=== PATIENT | female | born 1980 | race Two or more races ===

== ENCOUNTER 2016-06-23 09:13 | Emergency (ER) | payer MEDICAID ==
[~2016-06-23] VITALS: Ht 160 cm; Wt 72.6 kg
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
[2016-06-23] MEDS ORDERED: AMOXICILLIN500 MG ORAL (09:51)
[2016-06-23] MEDS ORDERED: IBUPROFEN600 MG ORAL (09:51)
[2016-06-23 10:00] VITALS: BP 135/82
[2016-06-23 10:02] VITALS: BP 135/82
== END 2016-06-23 10:02 | disposition home or self-care (01) ==
LOC: EMR 09:43
DX: H66.91 Otitis media, unspecified, right ear (principal); K08.89 Other specified disorders of teeth and supporting structures
CPT/HCPCS: 99284

== ENCOUNTER 2016-09-07 14:03 | Emergency (ER) | payer MEDICAID ==
[~2016-09-07] VITALS: Ht 167.6 cm; Wt 72.6 kg
[~2016-09-07 14:03] MED LIST: AMOXICILLIN500 MG ORAL; IBUPROFEN600 MG ORAL
[2016-09-07 14:13] VITALS: BP 139/69
[2016-09-07] MEDS ORDERED: Norco 5mg/325mg tab ORAL ONE (14:30)
--- NOTE | 2016-09-07 16:03 | Diagnostic Imaging Report ---
Clinical Indication:PAIN Technique: 3 views of the right wrist Comparison: None Findings: No acute fractures. No dislocations. Joint spaces are preserved. No radiopaque foreign body Impression: Negative
--- NOTE | 2016-09-07 16:10 | Diagnostic Imaging Report ---
Indication: PAIN Technique: 3 views right hand Comparison: None Findings: No acute fractures. No dislocations. Joint spaces are preserved Impression: Negative
[2016-09-07] MEDS ORDERED: TRAMADOL HCL50 MG ORAL (16:13)
[2016-09-07] MEDS ORDERED: IBUPROFEN600 MG ORAL (16:13)
[2016-09-07 16:29] VITALS: BP 136/72
[2016-09-07 16:30] VITALS: BP 136/72
--- NOTE | 2016-09-07 22:48 | Emergency Room Report ---
History of Present Illness General Chief Complaint: Upper Extremity Injury Source: Patient Present Illness HPI The patient is a 36-year-old female presenting for injury to the right hand. She states that she tripped and fell onto the right hand last night. Pain described as an 8/10 dull ache and does not radiate. Worse with movement and touch. She denies previous injury to this area. She denies any other symptoms Allergies: Coded Allergies: No Known Allergies (Unverified , 06/23/16) Patient History Past Medical History: see triage record Pertinent Family History: none Last Menstrual Period: August 20, 2016 Now: No Reviewed Nursing Documentation: PMH: Agreed, PSxH: Agreed Nursing Documentation-PMH Past Medical History: No Stated History Review of Systems All Other Systems: negative except mentioned in HPI Physical Exam Vital Signs Date Time Temp Pulse Resp B/P Pulse Ox O2 Delivery O2 Flow Rate FiO2 09/07/16 14:08 98.1 71 20 139/69 94 Room Air Sp02 EP Interpretation: reviewed, normal General Appearance: no apparent distress, alert, GCS 15, non-toxic Head: normocephalic, atraumatic Eyes: bilateral eye PERRL, bilateral eye normal inspection Musculoskeletal: normal range of motion, swelling - R hand, tender - TTP over the R lateral wrist and 5th MC Neurologic: alert, oriented x3, responsive, motor strength/tone normal, sensory intact, speech normal Psychiatric: judgement/insight normal, memory normal, mood/affect normal, no suicidal/homicidal ideation Skin: normal color, no rash, warm/dry, well hydrated Procedures Splinting Splinting : Consent: Verbal Location: R arm Pre-Made Type: velcro Splint: volar Pre-Proc Neuro Vasc Exam: normal Post-Proc Neuro Vasc Exam: normal Patient Tolerated: Well Complications: None Medical Decision Making PA Attestation Dr. Casey is my supervising physician. Patient management was discussed with my supervising physician Diagnostic Impression: Primary Impression: Contusion Qualified Codes: S60.221A - Contusion of right hand, initial encounter ER Course The patient is a 36-year-old female presenting for right hand and wrist pain Ddx considered include but not limited to sprain/strain, fracture, contusion Physical exam: There is soft tissue swelling diffusely of the right hand. Tenderness to palpation noted over the distal fifth metacarpal and lateral wrist. Full active range of motion. No ecchymosis X-ray of the hand and wrist are both unremarkable A volar splint is placed Rice instructions are given and she will follow up with primary doctor. ER precautions given Other X-Ray Diagnostic Results Other X-Ray Diagnostic Results #1: X-Ray ordered: R hand # of Views/Limited Vs Complete: 3 View Indication: Pain EP Interpretation: Yes Interpretation: no dislocation, no soft tissue swelling, no fractures Impression: No acute disease Interpreting ER Provider: Dr. Carmela GONZALES Scribe Text I am acting as scribe for my supervising physician. My supervising physician's interpretation of the R hand xrays are there are no fractures, dislocations or soft tissue swelling. Other X-Ray Diagnostic Results #2: X-Ray ordered: R wrist # of Views/Limited Vs Complete: 3 View Indication: Pain EP Interpretation: Yes Interpretation: no dislocation, no soft tissue swelling Impression: No acute disease Interpreting ER Provider: Dr. Carmela Marinoibe Text I am acting as scribe for my supervising physician. My supervising physician's interpretation of the R wrist xrays are there are no fractures, dislocations or soft tissue swelling. Last Vital Signs Date Time Temp Pulse Resp B/P Pulse Ox O2 Delivery O2 Flow Rate FiO2 09/07/16 16:30 98.2 76 19 136/72 95 Room Air Status: improved Disposition: HOME, SELF-CARE Condition: Improved Scripts Tramadol Hcl* (ULTRAM*) 50 Mg Tablet 50 MG ORAL Q6H Y for For Pain, #10 TAB 0 Refills Prov: TERMARGOTANRADHA P.A. 09/07/16 Ibuprofen* (MOTRIN*) 600 Mg Tablet 600 MG ORAL Q8H Y for For Pain, #30 TAB 0 Refills Prov: TERZIAN,RADHA P.A. 09/07/16 Patient Instructions: Contusion Additional Instructions: I discussed my findings with the patient. All questions and concerns have been answered. Treatment and medication compliance have been addressed. I advised the patient that they need to follow up with PMD in 3-5 days. Return to ED if pain remains or worsens, numbness or tingling occurs, new rash is noticed, fever is noticed, or if needed for any reason. Patient verbalized understanding of discharge instructions. RADHA LOPES Sep 07, 2016 22:48
== END 2016-09-07 16:32 | disposition home or self-care (01) ==
LOC: EMR 14:30
DX: S60.221A Contusion of right hand, initial encounter (principal); W01.0XXA Fall on same level from slipping, tripping and stumbling without subsequent striking against object, initial encounter; Y92.89 Other specified places as the place of occurrence of the external cause
CPT/HCPCS: 29260; 99284

== ENCOUNTER 2016-09-14 11:50 | Emergency (ER) | payer MEDICAID ==
[~2016-09-14] VITALS: Ht 160 cm; Wt 74.8 kg
[~2016-09-14 11:50] MED LIST changes: +TRAMADOL HCL50 MG ORAL
[2016-09-14 12:01] VITALS: BP 129/73
[2016-09-14 12:59] VITALS: BP 129/73
--- NOTE | 2016-09-14 14:43 | Emergency Room Report ---
History of Present Illness General Chief Complaint: General Complaint Source: Patient Present Illness HPI Patient 36-year-old female presented for followup on a hand injury. The patient had recent fall for which she was placed in a posterior splint. Patient had negative x-ray imaging.The patient denied any severe pain. She reports having no numbness. She reported having continued pain to her right fourth and fifth metacarpal. Allergies: Coded Allergies: No Known Allergies (Unverified , 06/23/16) Patient History Past Medical History: see triage record Last Menstrual Period: 08/30/16 Reviewed Nursing Documentation: PMH: Agreed, PSxH: Agreed Nursing Documentation-PMH Past Medical History: No Stated History Review of Systems All Other Systems: negative except mentioned in HPI Physical Exam Vital Signs Date Time Temp Pulse Resp B/P Pulse Ox O2 Delivery O2 Flow Rate FiO2 09/14/16 11:53 97.5 69 14 129/73 99 Room Air General Appearance: well appearing, no apparent distress, alert, GCS 15 Head: normocephalic, atraumatic ENT: hearing grossly normal, normal voice Neck: full range of motion, supple Respiratory: no respiratory distress, speaking full sentences Musculoskeletal: normal inspection, back normal, digits/nails normal, no calf tenderness Neurologic: normal inspection, alert, oriented x3, responsive, methods study analyst III-XII nml as tested, motor strength/tone normal, normal gait Psychiatric: mood/affect normal Skin: normal inspection, normal color, no rash Medical Decision Making Diagnostic Impression: Primary Impression: Hand contusion Additional Impression: Contusion ER Course Patient presented for wound check. The patient appeared to have no evidence of the new tenderness or pain. Splint was removed. The patient was advised followup with orthopedics in next few days for reexamination. The patient is advised continuous her extremity and to limit the amount of use of her right hand. The patient is advised to follow up with primary care doctor in 1-2 days. Patient is advised to return if any worsening condition or if any changes in status that are concerning. Last Vital Signs Date Time Temp Pulse Resp B/P Pulse Ox O2 Delivery O2 Flow Rate FiO2 09/14/16 12:59 97.5 68 14 129/73 99 Room Air Status: improved Disposition: HOME, SELF-CARE Condition: Stable Patient Instructions: Augustin Mora Sep 14, 2016 14:43
== END 2016-09-14 13:10 | disposition home or self-care (01) ==
LOC: EMR 12:37
DX: S60.221D Contusion of right hand, subsequent encounter (principal); W19.XXXD Unspecified fall, subsequent encounter
CPT/HCPCS: 99282

== ENCOUNTER 2016-12-01 09:32 | Emergency (ER) | payer MEDICAID ==
[~2016-12-01] VITALS: Ht 162.6 cm; Wt 74.8 kg
[2016-12-01] MEDS ORDERED: NKM (09:37)
[2016-12-01] MEDS ORDERED: Solu-MEDROL 125mg Inj IM ONE (10:15)
[2016-12-01] MEDS ORDERED: BENADRYL25 MG ORAL (10:28)
[2016-12-01] MEDS ORDERED: PEPCID20 MG ORAL (10:28)
[2016-12-01] MEDS ORDERED: PREDNISONE20 MG ORAL (10:28)
--- NOTE | 2016-12-01 10:31 | Emergency Room Report ---
History of Present Illness General Chief Complaint: General Complaint Source: Patient Present Illness HPI Patient presents with complaints that she has been having a rash and itching for the past 2 weeks Patient has not taken any medications denies any new job denies any contact with new chemicals patient does work as a distributor cleaner at homes Denies any recent travel Denies any fevers Denies any dysuria frequency The rash is fairly general throughout the arms upper chest facial area Allergies: Coded Allergies: No Known Allergies (Unverified , 06/23/16) Patient History Past Medical History: see triage record Pertinent Family History: none Last Menstrual Period: 10/21/16 Reviewed Nursing Documentation: PMH: Agreed, PSxH: Agreed Nursing Documentation-PMH Past Medical History: No Stated History Review of Systems All Other Systems: negative except mentioned in HPI Physical Exam Vital Signs Date Time Temp Pulse Resp B/P (MAP) Pulse Ox O2 Delivery O2 Flow Rate FiO2 12/01/16 09:35 97.3 56 18 139/79 98 Room Air Sp02 EP Interpretation: reviewed, normal General Appearance: well appearing, no apparent distress Head: normocephalic, atraumatic Eyes: bilateral eye PERRL, bilateral eye EOMI ENT: hearing grossly normal, normal pharynx, TMs + canals normal, uvula midline Neck: full range of motion, supple, no meningismus, no bony tend Respiratory: lungs clear, normal breath sounds, no rhonchi, no respiratory distress, no retraction, no accessory muscle use Cardiovascular #1: normal peripheral pulses, regular rate, rhythm, no edema, no gallop, no JVD, no murmur Gastrointestinal: normal bowel sounds, non tender, soft, no mass, no organomegaly, non-distended, no guarding, no hernia, no pulsatile mass, no rebound Genitourinary: no CVA tenderness Musculoskeletal: normal inspection Neurologic: oriented x3, responsive, medical office worker III-XII nml as tested, motor strength/ tone normal, sensory intact Psychiatric: mood/affect normal Skin: other - Diffuse general nonspecific rash involving upper arms, mild erythema, does not appear to be petechiae or target cell in appearance there is no streaking of erythema, Lymphatic: normal inspection, no adenopathy Medical Decision Making Diagnostic Impression: Primary Impression: rash Additional Impression: Rash and nonspecific skin eruption ER Course Patient does not appear bacteremic does not appear septic there appears to be a reaction to some external source Patient was treated symptomatically at this time requires close outpatient followup Last Vital Signs Date Time Temp Pulse Resp B/P (MAP) Pulse Ox O2 Delivery O2 Flow Rate FiO2 12/01/16 09:35 97.3 56 18 139/79 98 Room Air Status: improved Disposition: HOME, SELF-CARE Condition: Improved Scripts Diphenhydramine Hcl* (BENADRYL*) 25 Mg Capsule 25 MG ORAL Q6H Y for Itching for 7 Days, CAP Prov: KIRK CANNON D.O. 12/01/16 Famotidine (PEPCID) 20 Mg Tablet 20 MG ORAL DAILY, #7 TAB 0 Refills Prov: KIRK CANNON D.O. 12/01/16 Prednisone* (PREDNISONE*) 20 Mg Tablet 20 MG ORAL BID, #8 TAB Prov: KIRK CANNON D.O. 12/01/16 Referrals: NOT CHOSEN IPA/MD,REFERRING (PCP) Patient Instructions: Rash, [id number] Additional Instructions: Patient is provided with the discharge instructions notified to follow up with primary doctor in the next 2-3 days otherwise return to the er with any worsening symptoms. Please note that this report is being documented using REMOTV technology. This can lead to erroneous entry secondary to incorrect interpretation by the dictating instrument. KIRK CANNON D.O. Dec 01, 2016 10:31
[2016-12-01 10:38] VITALS: BP 104/73
== END 2016-12-01 11:30 | disposition home or self-care (01) ==
LOC: EMR 09:51
DX: R21 Rash and other nonspecific skin eruption (principal)
CPT/HCPCS: 96372; 99284; J2930

== ENCOUNTER 2017-04-21 11:47 | Emergency (ER) | payer SELFPAY ==
[~2017-04-21] VITALS: Ht 162.6 cm; Wt 79.4 kg
[~2017-04-21 11:47] MED LIST changes: +BENADRYL25 MG ORAL; +NKM; +PEPCID20 MG ORAL; +PREDNISONE20 MG ORAL
[2017-04-21 12:19] VITALS: BP 122/61
[2017-04-21] MEDS ORDERED: Tylenol #3 tab (300mg/30mg) ORAL ONE (13:00)
[2017-04-21] MEDS ORDERED: Albuterol ud Inhalation HHN ONE (13:00)
--- NOTE | 2017-04-21 13:29 | Emergency Room Report ---
History of Present Illness General Chief Complaint: Abdominal Pain Source: Patient Present Illness HPI 36-year-old female presents with 3-4 days of dry cough, upper respiratory symptoms including rhinorrhea, sore throat, nasal congestion. Patient is a smoker however no history of asthma or COPD She is also complaining of multiple months of right-sided abdominal pain, worse with eating, has known history of biliary colic. Was told to have outpatient elective surgery removal of a bladder however didn't do it "because I was of the time." Has not followed up since. She states pain is "okay" right now, no associated nausea, vomiting, diarrhea or fevers or chills. She reiterates that the main reason she is here is for her cough. Allergies: Coded Allergies: No Known Allergies (Unverified , 06/23/16) Patient History Past Medical History: other - biliary colic Past Surgical History: none Pertinent Family History: none Social History: Reports: smoking Now: No Immunizations: UTD Reviewed Nursing Documentation: PMH: Agreed, PSxH: Agreed Nursing Documentation-PMH Past Medical History: No Stated History Review of Systems All Other Systems: negative except mentioned in HPI Physical Exam Vital Signs Date Time Temp Pulse Resp B/P (MAP) Pulse Ox O2 Delivery O2 Flow Rate FiO2 04/21/17 12:15 97.4 70 22 122/61 100 Room Air 97.3 04/21/17 13:16 21 Sp02 EP Interpretation: reviewed, normal General Appearance: normal inspection, well appearing, no apparent distress, alert, GCS 15, non-toxic, obese Head: normocephalic, atraumatic Eyes: bilateral eye PERRL, bilateral eye EOMI ENT: normal ENT inspection, hearing grossly normal, normal pharynx, no angioedema, normal voice, TMs + canals normal, uvula midline, moist mucus membranes Neck: normal inspection, full range of motion, supple, thyroid normal, no meningismus, no bony tend Respiratory: normal inspection, lungs clear, normal breath sounds, no rhonchi, no respiratory distress, no retraction, no accessory muscle use, no wheezing, speaking full sentences Cardiovascular #1: regular rate, rhythm, no edema, no JVD, normal capillary refill Gastrointestinal: normal inspection, normal bowel sounds, non tender, soft, no mass, no peritonitis, non-distended, no guarding, no hernia, no pulsatile mass Genitourinary: no CVA tenderness Musculoskeletal: normal inspection, back normal, normal range of motion, no calf tenderness, pelvis stable, Calvin's Sign negative Neurologic: normal inspection, alert, oriented x3, responsive, production helper III-XII nml as tested, motor strength/tone normal, cerebellar normal, normal gait, speech normal Psychiatric: normal inspection, judgement/insight normal, mood/affect normal, no suicidal/homicidal ideation, no delusions Skin: normal inspection, normal color, no rash Lymphatic: normal inspection, no adenopathy Medical Decision Making Diagnostic Impression: Primary Impression: Abdominal pain Qualified Codes: R10.11 - Right upper quadrant pain Additional Impressions: Biliary colic Acute bronchitis Qualified Codes: J20.9 - Acute bronchitis, unspecified ER Course Vital signs stable, afebrile Right-sided abdominal pain: chronic, likely related to biliary colic. Patient has multiple risk factors for biliary colic including age, female gender, multiple pregnancies, ethnicity, and obesity. She does not currently have any abdominal tenderness or fever or other concern for acute cholecystitis at this time. Regarding the cough, lungs are clear to auscultation, no rhonchi or wheezing Improved after albuterol Likely acute bronchitis No myalgias, headache or other concern for influenza Patient otherwise well-appearing Will give symptomatically treatment for cough Strong recommendation to follow-up with outside surgeon for elective cholecystectomy ER course: Patient has remained stable during ED stay. Disposition: Patient is to be discharged to home. Prescriptions given are ventolin, cough syrup Patient is instructed to follow up with their primary care doctor within 5 days. Patient is instructed to follow up with Gen Valerieron in 1 week Strict return precautions discussed with patient such as fever, chills, worsening/severe pain, nausea, vomiting, which may indicate severe illness. Patient verbalizes understanding and agrees with plan. Please note that this Emergency Department Report was dictated using Platialgeospatial extractor analysis technology software, occasionally this can lead to erroneous entry secondary to interpretation by the dictation equipment Last Vital Signs Date Time Temp Pulse Resp B/P (MAP) Pulse Ox O2 Delivery O2 Flow Rate FiO2 04/21/17 13:16 21 04/21/17 13:16 66 16 100 Room Air 04/21/17 13:02 97.4 04/21/17 12:19 122/61 Status: improved Disposition: HOME, SELF-CARE Referrals: NOT CHOSEN IPA/,REFERRING (PCP) SONY MAYES M.D. Apr 21, 2017 13:29
[2017-04-21] MEDS ORDERED: PROMETH-CODEIN 65 ML PO (13:31)
[2017-04-21] MEDS ORDERED: VENTOLIN HFA18 GM INH (13:31)
[2017-04-21 13:35] VITALS: BP 118/69
== END 2017-04-21 13:35 | disposition home or self-care (01) ==
LOC: EMR 12:47
DX: R10.9 Unspecified abdominal pain (principal); J20.9 Acute bronchitis, unspecified
CPT/HCPCS: 94640; 94664; 99283

== ENCOUNTER 2017-07-02 20:08 | Emergency (ER) | payer SELFPAY ==
[~2017-07-02] VITALS: Ht 160 cm; Wt 79.4 kg
[~2017-07-02 20:08] MED LIST changes: +PROMETH-CODEIN 65 ML PO; +VENTOLIN HFA18 GM INH
[2017-07-02] MEDS ORDERED: oxyCODONE HCL/Acetaminophen 5/325mg ORAL ONE (20:30)
--- NOTE | 2017-07-02 20:32 | Emergency Room Report ---
History of Present Illness General Chief Complaint: Lower Extremity Injury Source: Patient Present Illness HPI Last night the patient was going out dancing and twisted her right foot. She's had swelling and pain both in the ankle and also the lateral side of the foot. The pain is significant at this time radiates somewhat up into the leg. She denies any numbness. She's taken no medication for this. She denies prior injury of the ankle or the foot. She states she's on her menses now. She denies any fevers, chills, upper respiratory symptoms, cough, chest pain, calf pain. 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 Nursing Documentation: PMH: Agreed; PSxH: Agreed Nursing Documentation-PMH Past Medical History: No Stated History Review of Systems Constitutional: Denies: fever Respiratory: Reports: see HPI Cardiovascular: Reports: see HPI Gastrointestinal: Reports: see HPI Genitourinary: Reports: see HPI Musculoskeletal: Reports: see HPI Skin: Reports: see HPI Neurological: Reports: see HPI All Other Systems: negative except mentioned in HPI Physical Exam Vital Signs Date Time Temp Pulse Resp B/P (MAP) Pulse Ox O2 Delivery O2 Flow Rate FiO2 07/02/17 20:11 98.0 83 16 128/69 97 Room Air 98.1 Sp02 EP Interpretation: reviewed, normal General Appearance: well appearing, no apparent distress Head: normocephalic, atraumatic Eyes: bilateral eye normal inspection, bilateral eye PERRL ENT: hearing grossly normal, normal voice, moist mucus membranes Neck: full range of motion, supple Respiratory: no respiratory distress, speaking full sentences Gastrointestinal: normal inspection Musculoskeletal: no calf tenderness, decreased range of mation, swelling, other - ligaments stable, TTP lateral maleolus and 5th MT Neurologic: alert, motor strength/tone normal, DTRs symmetric, sensory intact, normal gait Psychiatric: mood/affect normal Skin: no rash Medical Decision Making Diagnostic Impression: Primary Impression: Right ankle sprain Qualified Codes: S93.401A - Sprain of unspecified ligament of right ankle, initial encounter ER Course Patient presents with right ankle and foot injury last night. Based on [place] ankle rules the patient needs to have an x-ray performed. Differential includes fracture, sprain, contusion amongst others. The patient will be treated with analgesia also. X-ray reveals no fracture. But there is soft tissue swelling. An Aircast is applied. Position is excellent and neurovascular is normal as checked by me. The patient is also given crutches. Pain is improved. The patient is stable for outpatient observation and treatment. Other X-Ray Diagnostic Results Other X-Ray Diagnostic Results : X-Ray ordered: r ankle # of Views/Limited Vs Complete: 3 View Indication: Pain Interpretation: no dislocation, no fractures, other - STS - possible old fx near cuboid/5th MT, rounded and not look acute Impression: Other Electronically Signed by: Electronically signed by Regan Newton MD Last Vital Signs Date Time Temp Pulse Resp B/P (MAP) Pulse Ox O2 Delivery O2 Flow Rate FiO2 07/02/17 21:44 97.9 70 18 132/70 98 Room Air 98.0 Status: improved Disposition: HOME, SELF-CARE Condition: Improved Scripts Tramadol Hcl* (ULTRAM*) 50 Mg Tablet 50 MG ORAL Q6H PRN for For Pain, #10 TAB 0 Refills Prov: Regan Newton M.D. 07/02/17 Ibuprofen* (MOTRIN*) 600 Mg Tablet 600 MG ORAL Q6H PRN for For Pain, #20 TAB Prov: Regan Newton M.D. 07/02/17 Regan Newton M.D. July 02, 2017 20:32
[2017-07-02] MEDS ORDERED: IBUPROFEN600 MG ORAL (21:36)
[2017-07-02] MEDS ORDERED: TRAMADOL HCL50 MG ORAL (21:36)
[2017-07-02 21:44] VITALS: BP 132/70
--- NOTE | 2017-07-03 08:58 | Diagnostic Imaging Report ---
Indication: Reason For Exam: TRAUMA Technique: XRAY Ankle Compl Min 3v R Comparison: None. Findings: The osseous structures are intact. There is no fracture or destruction. The visualized joints are normal. There is a plantar calcaneal enthesophyte. Impression: Enteric calcaneal enthesophyte. Otherwise negative.
== END 2017-07-02 21:44 | disposition home or self-care (01) ==
LOC: EMR 20:31
DX: S93.401A Sprain of unspecified ligament of right ankle, initial encounter (principal); F17.200 Nicotine dependence, unspecified, uncomplicated; X50.1XXA Overexertion from prolonged static or awkward postures, initial encounter; Y93.41 Activity, dancing; Y92.9 Unspecified place or not applicable
CPT/HCPCS: 99284

== ENCOUNTER 2018-02-13 21:37 | Emergency (ER) | payer MEDICAID ==
[~2018-02-13] VITALS: Ht 162.6 cm; Wt 79.4 kg
--- NOTE | 2018-02-13 22:20 | NUR ---
ED Nurse Note: RECIEVED PT FROM HOME WITH C/O MECHANICAL FALL WITH PAIN AT 10/10 TO LEFT SHOULDER AND ARM, MILD SWELLING NOTED, NO DEFORMITY, TP ABLE TO MOVE EXTREMITY AND ALL PULSES ARE PRESENT, PT DENIES ANY OTHER INJURY OR COMPLAINT, PT DAUGHTER AT BEDSIDE WITH HER, PT ASSISTED TO GURNEY AND ARM POSITIONED WITH PILLOW SUPPORT AND ICE PACK.
[2018-02-13] MEDS ORDERED: Norco 5mg/325mg tab PO ONE (23:00)
[2018-02-13 23:30] VITALS: BP 122/84
[2018-02-13] MEDS ORDERED: ACETAMINOPHEN-1 EAC1 ORAL (23:33)
[2018-02-13] MEDS ORDERED: IBUPROFEN600 MG ORAL (23:33)
--- NOTE | 2018-02-13 23:55 | NUR ---
ED Nurse Note: ALL X-RAYS ARE NEGATIVE, PT BEING D/C TO HOME, SLING APPLIED TO LEFT ARM, PT SHOWN HOW TO APPLY AND RETURN DEMONSTRATES WELL, PT STATES MEDS GIVEN EFFECTIVE WITH PAIN LEVEL AT 6/10, PT DAUGHTER PRESENT TO DRIVE, PT GIVEN F/U INFO, AFTER CARE INSTRUCTIONS AND BOTH PARTIES RE-VERBALIZES PROPER MEDICATION ADMINISTRATION AND S/S TO MONITOR FOR, PT ALSO GIVEN REFERRALS FOR CLINIC F/U, PT LEAVING AMBULATORY, ARMBAND REMOVED, NAD NOTED DURING D/C TO HOME.
[2018-02-14 00:04] VITALS: BP 122/84
--- NOTE | 2018-02-14 03:35 | Emergency Room Report ---
History of Present Illness General Chief Complaint: Upper Extremity Injury Source: Patient Present Illness HPI 37-year-old female presents ED for evaluation. Patient complaining of left shoulder pain states that she fell in the shower today. Denies hitting her head or LOC. Complaining of pain to the left shoulder. 10 out of 10, throbbing , nonradiating. Unable to raise her shoulder. Denies any other injuries. No other aggravating relieving factors. Denies any other associated symptoms Allergies: Coded Allergies: No Known Allergies (Unverified , 06/23/16) Patient History Past Medical History: none Past Surgical History: none Pertinent Family History: none Social History: Denies: smoking, alcohol use, drug use Last Menstrual Period: One week ago Now: No Immunizations: UTD Reviewed Nursing Documentation: PMH: Agreed; PSxH: Agreed Nursing Documentation-PMH Past Medical History: No Stated History Review of Systems All Other Systems: negative except mentioned in HPI Physical Exam Vital Signs Date Time Temp Pulse Resp B/P (MAP) Pulse Ox O2 Delivery O2 Flow Rate FiO2 02/13/18 22:08 98.2 0 18 127/79 98 Room Air Sp02 EP Interpretation: reviewed, normal General Appearance: no apparent distress, alert, GCS 15, non-toxic Head: normocephalic Eyes: bilateral eye normal inspection, bilateral eye PERRL ENT: normal ENT inspection Neck: normal inspection Respiratory: normal inspection Cardiovascular #1: normal inspection Gastrointestinal: normal inspection Rectal: deferred Genitourinary: no CVA tenderness Musculoskeletal: tender - L shoulder Neurologic: alert, oriented x3, responsive, motor strength/tone normal, sensory intact, speech normal Psychiatric: normal inspection Skin: normal inspection Lymphatic: normal inspection Procedures Splinting Splinting : Consent: Verbal Splint: sling Pre-Proc Neuro Vasc Exam: normal Post-Proc Neuro Vasc Exam: normal Patient Tolerated: Well Complications: None Medical Decision Making Diagnostic Impression: Primary Impression: Shoulder injury Qualified Codes: S49.92XA - Unspecified injury of left shoulder and upper arm , initial encounter ER Course Hospital Course 37 yo F presents to ED c/o L shoulder pain s/p fall Differential diagnoses include: Fracture, dislocation, sprain, contusion Clinical course Patient placed on stretcher. After initial history and physical, I ordered pain medications and Xrays of L shoulder Xrays prelim read shows no acute fracture/dislocation. Placed in shoulder sling Discussed findings with patient Safe for discharge or close outpatient follow-up. Patient does not have a PMD. We'll provide referrals Diagnosis - shoulder injury Stable and discharged to home with prescription for Motrin, tylenol #3. apply ice, keep elevated. weight bear as tolerated. Followup with PMD. Return to ED if symptoms recur or worsen Other X-Ray Diagnostic Results Other X-Ray Diagnostic Results : X-Ray ordered: L shoulder # of Views/Limited Vs Complete: 3 View Indication: Pain EP Interpretation: Yes Interpretation: no dislocation, no soft tissue swelling, no fractures Impression: No acute disease Electronically Signed by: Electronically signed by Regis De Leon MD Last Vital Signs Date Time Temp Pulse Resp B/P (MAP) Pulse Ox O2 Delivery O2 Flow Rate FiO2 02/14/18 00:04 98.4 81 18 122/84 99 Room Air Status: improved Disposition: HOME, SELF-CARE Condition: Stable Scripts Acetaminophen With Codeine (T#3) (TYLENOL #3 TAB*) Y Tab 1 TAB ORAL Q8H PRN for For Pain for 3 Days, TAB Prov: Regis De Leon MD 02/13/18 Ibuprofen* (MOTRIN*) 600 Mg Tablet 600 MG ORAL Q8H PRN for For Pain, #30 TAB 0 Refills Prov: Regis De Leon MD 02/13/18 [facility] Patient Instructions: Shoulder Pain, [id number] Regis De Leon MD Feb 14, 2018 03:35
--- NOTE | 2018-02-14 12:06 | Diagnostic Imaging Report ---
Indication: Left shoulder pain Technique: 3 views of the left shoulder Comparison: none Findings: No acute fractures. No dislocations. The joint spaces are preserved Impression: Negative
== END 2018-02-13 23:55 | disposition home or self-care (01) ==
LOC: EMR 22:50
DX: S49.92XA Unspecified injury of left shoulder and upper arm, initial encounter (principal); W18.2XXA Fall in (into) shower or empty bathtub, initial encounter; Y92.9 Unspecified place or not applicable
CPT/HCPCS: 99283

== ENCOUNTER 2019-05-13 19:42 | Emergency (ER) | payer MEDICAID ==
[~2019-05-13] VITALS: Ht 160 cm; Wt 77.1 kg
[~2019-05-13 19:42] MED LIST changes: +ACETAMINOPHEN-1 EAC1 ORAL
[2019-05-13 19:46] VITALS: BP 142/85
--- NOTE | 2019-05-13 19:47 | NUR ---
ED Nurse Note: Patient walked in to ER duen to sore throat, painfull swalowing, denyed chills, fever. Patient AAO x4, VSS at this time.
--- NOTE | 2019-05-13 20:00 | Emergency Room Report ---
History of Present Illness General Chief Complaint: Upper Respiratory Illness Source: Patient Present Illness HPI Disclaimer: Please note that this report is being documented using [employer] technology. This can lead to erroneous entry secondary to incorrect interpretation by the dictating instrument. HPI: 38-year-old otherwise healthy female presents for evaluation of cough. Symptoms began this morning. She is both a nonproductive cough without fever or chills since waking up this morning. Took Tylenol approximately 8:11 AM but otherwise no medications were taken. Denies shortness of breath, chest pain, nausea, vomiting, diarrhea, fever or chills. She has had a nasal congestion, postnasal drip and a sore throat for approximately 5 days. Denies history of lung disease. Does smoke cigarettes. No other comorbid conditions noted. PMH: Denies PSH: Denies Allergies: Denies Social Hx: Daily tobacco use Allergies: Coded Allergies: No Known Allergies (Unverified , 06/23/16) COVID-19 Screening Contact w/high risk pt: No Recent Travel to affected area: No Experienced COVID-19 symptoms?: Yes COVID-19 symptoms experienced: Cough Patient History Last Menstrual Period: 05/08/2019 Now: No Nursing Documentation-PMH Past Medical History: No Stated History Review of Systems All Other Systems: negative except mentioned in HPI Physical Exam Vital Signs Date Time Temp Pulse Resp B/P (MAP) Pulse Ox O2 Delivery O2 Flow Rate FiO2 05/13/19 19:35 97.9 72 18 142/85 (104) 96 Room Air General: Awake and alert, no acute distress HEENT: NC/AT. EOMI. PERRLA. Uvula is midline. Tonsils are 1+, nonedematous, nonerythematous, no exudate. No mucosal ulcerations or skin breakdown. Neck: Supple, trachea midline, no significant lymphadenopathy Chest Wall: No tenderness, no deformity Cardiovascular: RRR. S1 and S2 normal. No murmur appreciated Resp: Normal work of breathing. No cough, wheezing or crackles appreciated Skin: Intact. No abrasions, laceration or rash over the exposed skin MSK: Normal tone and bulk. Moving all extremities. No obvious deformity. Neuro: Awake and alert. Mentating appropriately. Medical Decision Making Diagnostic Impression: Primary Impression: Suspected 2019 novel coronavirus infection Additional Impression: Upper respiratory infection ER Course This is a 38-year-old female with no reported medical history presenting for evaluation of 5 days upper respiratory symptoms and 1 day of nonproductive cough. She arrives with stable vital signs, afebrile and no respiratory distress. Symptoms are nonspecific and without red flag findings in history or physical exam for significant illness. The patient is overall well-appearing with a normal lung exam, nonlabored breathing's and normal pulse oximetry. At this time I do not believe that the patient requires emergent labs or imaging. Symptoms are most consistent with a viral syndrome which in the setting of the global pandemic of novel COVID-19 the patient is suspected to have the infection. Little clinical suspicion for pneumonia at this time as symptoms of cough have been present for only 1 day. Our [facility] is currently unable to provide COVID-19 testing on otherwise healthy appearing patients. The patient is given close return precautions and follow-up instructions. I educated the patient that at this time this is a [facility] and is unable to support COVID-19 screening and people that are otherwise healthy and well-appearing without evidence of decompensation. I did educate the patient that he could have any number of viral infections to include influenza, rhinovirus or COVID-19. The patient was educated that they should self- quarantine for 14 days as a precaution and not come into contact with any one that is elderly or has multiple chronic medical conditions. The patient was also educated of the signs and symptoms that indicate worsening of a respiratory virus and would require return to the emergency department which includes worsening symptoms and difficulty breathing. The patient is given close return precautions and follow-up instructions. Last Vital Signs Date Time Temp Pulse Resp B/P (MAP) Pulse Ox O2 Delivery O2 Flow Rate FiO2 05/13/19 19:46 97.9 18 142/85 96 Room Air 05/13/19 19:46 72 Disposition: HOME, SELF-CARE Condition: Stable Departure Forms: Return to Work Return to Work Date: May 27, 2019 Patient Instructions: Upper Respiratory Infection, Adult Additional Instructions: Call your primary physician as soon as possible to discuss emergency department visit. You may require reevaluation or further testing per your doctor's recommendations. Limit your contact with others as much as possible over the next 14 days. Stay minimum of 6 feet away from others, do not attend large gatherings and clean and disinfect all heavily used surfaces. Follow CDC guidelines for isolation and infection prevention. If you experience any new or worsening symptoms discussed with your doctor or return to the emergency department for reevaluation. Danny Soni MD May 13, 2019 19:59
[2019-05-13] MEDS ORDERED: GUAIFENESI100 MG/5 M ORAL (20:04)
[2019-05-13] MEDS ORDERED: IBUPROFEN600 M1 ORAL ×2 (20:04)
[2019-05-13] MEDS ORDERED: ACETAMINOPHEN325 M1 ORAL (20:05)
[2019-05-13 20:07] VITALS: BP 142/85
--- NOTE | 2019-05-13 20:08 | NUR ---
ED Nurse Note: Pt cleared by health care Provider for discharge. DC instructions/prescription was given and explained to pt and verbalized understanding of teachings. All medical deviecs such as ID band removed. Pt is AAO x4, ambulatory and left with all personal belongings.
== END 2019-05-13 20:08 | disposition home or self-care (01) ==
LOC: EDBD 19:42 → EMR 19:54
DX: J06.9 Acute upper respiratory infection, unspecified (principal); Z03.818 Encounter for observation for suspected exposure to other biological agents ruled out
CPT/HCPCS: 99282

== ENCOUNTER 2019-09-09 16:23 | Emergency (ER) | payer MEDICAID ==
[~2019-09-09] VITALS: Ht 162.6 cm; Wt 79.4 kg
[~2019-09-09 16:23] MED LIST changes: +ACETAMINOPHEN325 M1 ORAL; +GUAIFENESI100 MG/5 M ORAL; +IBUPROFEN600 M1 ORAL
[2019-09-09 16:40] VITALS: BP 137/85
--- NOTE | 2019-09-09 16:40 | NUR ---
ED Nurse Note: Pt ambulated to ED from home d/t bilateral cheek swelling and pain x 4 days. no reports of trauma. pt is A&Ox4, romanian in speaking, crying d/t pain. VSS, on RA, afebrile in triage.
[2019-09-09] MEDS ORDERED: Augmentin 875mg Tab ORAL ONE (16:45)
[2019-09-09] MEDS ORDERED: Ketorolac 30mg Inj IM ONE (16:45)
--- NOTE | 2019-09-09 16:52 | Emergency Room Report ---
History of Present Illness General Chief Complaint: Pain Source: Patient Present Illness HPI 39-year-old female with no signal past medical history here complaining of 2 days of left-sided facial swelling and pain as well as teeth pain. Reports that she tried going to her dentist however was told to come to the ER first. Patient has range of motion and no neurovascularly intact. Denies any tingling numbness. Rates the pain 5 out of 10 without radiation. Swelling is noted mainly on the left mandible and tender to palpation. Denies any sore throat, cough or congestion, shortness of breath, fever and chills. Has not taken medication for symptom relief. Denies . Allergies: Coded Allergies: No Known Allergies (Unverified , 06/23/16) COVID-19 Screening Contact w/high risk pt: No Recent Travel to affected area: No Experienced COVID-19 symptoms?: No COVID-19 symptoms experienced: Cough COVID-19 Testing performed STENOTYPE OPERATOR: No Patient History Past Medical History: see triage record Past Surgical History: none Pertinent Family History: none Now: No Immunizations: UTD Reviewed Nursing Documentation: PMH: Agreed; PSxH: Agreed Nursing Documentation-PMH Past Medical History: No Stated History Review of Systems All Other Systems: negative except mentioned in HPI Physical Exam Vital Signs Date Time Temp Pulse Resp B/P (MAP) Pulse Ox O2 Delivery O2 Flow Rate FiO2 09/09/19 16:30 98.8 79 16 137/85 (102) 97 Room Air Sp02 EP Interpretation: reviewed, normal General Appearance: no apparent distress, alert, GCS 15, non-toxic Head: normocephalic, atraumatic Eyes: bilateral eye normal inspection, bilateral eye PERRL ENT: hearing grossly normal, normal pharynx, no angioedema, normal voice Neck: full range of motion, supple/symm/no masses Respiratory: chest non-tender, lungs clear, normal breath sounds, no rhonchi, no respiratory distress, no retraction, speaking full sentences Cardiovascular #1: regular rate, rhythm, no edema, no murmur Gastrointestinal: normal bowel sounds, non tender, soft, non-distended, no guarding, no rebound Rectal: deferred Genitourinary: no CVA tenderness Musculoskeletal: back normal, no calf tenderness, swelling - Left-sided facial swelling and cellulitic mainly in the left mandible Neurologic: alert, motor strength/tone normal, oriented x3, sensory intact, responsive, speech normal Psychiatric: judgement/insight normal, memory normal, mood/affect normal, no suicidal/homicidal ideation Skin: no rash Lymphatic: adenopathy - Left anterior cervical Medical Decision Making PA Attestation All my diagnosis and treatment plans were reviewed ad discussed with my supervising physician Dr. De Leon Diagnostic Impression: Primary Impression: Facial cellulitis ER Course 39-year-old female with no signal past medical history here complaining of 2 days of left-sided facial swelling and pain as well as teeth pain. Reports that she tried going to her dentist however was told to come to the ER first. Patient has range of motion and no neurovascularly intact. Denies any tingling numbness. Rates the pain 5 out of 10 without radiation. Swelling is noted mainly on the left mandible and tender to palpation. Denies any sore throat, cough or congestion, shortness of breath, fever and chills. Has not taken medication for symptom relief. Denies . Ddx considered but are not limited to : Cellulitis, , superficial infection, abscess Vital signs: are WNL, pt. is afebrile H&PE are most consistent with: Facial cellulitis most likely secondary to dental infection ORDERS: Augmentin, prednisone, Motrin ED INTERVENTIONS: First dose of Augmentin and prednisone, Toradol IM DISCHARGE: At this time pt. is stable for d/c to home. Will provide printed patient care instructions, and any necessary prescriptions. Care plan and follow up instructions have been discussed with the patient prior to discharge. Patient take medication as directed, follow primary care provider, if worsening symptoms return to emergency room. Also follow-up with a dentist. Last Vital Signs Date Time Temp Pulse Resp B/P (MAP) Pulse Ox O2 Delivery O2 Flow Rate FiO2 09/09/19 16:30 98.8 79 16 137/85 (102) 97 Room Air Disposition: HOME, SELF-CARE Condition: Stable Scripts Prednisone* (PREDNISONE*) 20 Mg Tablet 40 MG ORAL DAILY for 5 Days, #10 TAB Prov: Aaron Maldonado 09/09/19 Ibuprofen* (MOTRIN*) 600 Mg Tablet 600 MG ORAL Q8H PRN for FOR PAIN, #30 TAB 0 Refills Prov: Aaron Maldonado 09/09/19 Amoxicillin/Potassium Clav 875-125* (AUGMENTIN 875-125 TABLET*) 1 Each Tablet 1 TAB ORAL TWICE A DAY for 10 Days, #20 TAB Prov: Aaron Maldonado 09/09/19 Patient Instructions: Cellulitis, [id number] Additional Instructions: Take medication as directed, follow-up with primary care and dentist, if worsening symptoms return to the emergency room Aaron Maldonado Sep 09, 2019 16:52
[2019-09-09] MEDS ORDERED: PREDNISONE20 MG ORAL (16:56)
[2019-09-09] MEDS ORDERED: IBUPROFEN600 M1 ORAL (16:56)
[2019-09-09] MEDS ORDERED: AUGMENTIN 875-1 EAC1 ORAL (16:56)
[2019-09-09 17:05] VITALS: BP 137/85
--- NOTE | 2019-09-09 17:05 | NUR ---
ER DISCHARGE NOTE: Patient is cleared to be discharged per ERPA, pt is aox4, on room air, with stable vital signs. pt was given dc and prescription instructions, pt was able to verbalize understanding, pt id band removed. pt is able to ambulate with steady gait. pt took all belongings.
== END 2019-09-09 17:05 | disposition home or self-care (01) ==
LOC: EMR 16:55
DX: L03.211 Cellulitis of face (principal)
CPT/HCPCS: 96372; J1885; J7512; Z7502; 99283

== ENCOUNTER 2020-01-26 22:25 | Emergency (ER) | payer MEDICAID ==
[~2020-01-26] VITALS: Ht 167.6 cm; Wt 65.8 kg
[~2020-01-26 22:25] MED LIST changes: +AUGMENTIN 875-1 EAC1 ORAL
--- NOTE | 2020-01-26 22:30 | NUR ---
ED Nurse Note: pt walked into the ED C/O cough,N/V, fatigue, and chest pain x3 days. no sob and fever at the moment. monitor is on; vitals are stable. pt is A&Ox4, verbal and ambulatory.
[2020-01-26] MEDS ORDERED: ACETAMINOPHEN500 M3 ORAL (22:51)
[2020-01-26] MEDS ORDERED: TESSALON PERLE100 MG ORAL (22:51)
[2020-01-26 22:53] VITALS: BP 16/70
[2020-01-26] MEDS ORDERED: ZOFRAN ODT8 MG ORAL (22:53)
--- NOTE | 2020-01-26 22:55 | Emergency Room Report ---
History of Present Illness General Chief Complaint: Upper Respiratory Illness Source: Patient Present Illness HPI 39-year-old otherwise healthy female with no relevant past medical history here with cough and subjective fever and fatigue for 3 days. Patient unaware of whether she has, to contact with anybody infected with COVID-19 or anybody who has been sick. Has not take any medication for her symptoms. Says he feels chest discomfort when she coughs. No palpitations, shortness of breath, back pain, abdominal pain, nausea, vomiting, diarrhea, dysuria. Allergies: Coded Allergies: No Known Allergies (Unverified , 06/23/16) COVID-19 Screening Contact w/high risk pt: No Recent Travel to affected area: No Experienced COVID-19 symptoms?: Yes COVID-19 symptoms experienced: Cough COVID-19 Testing performed TERMINAL CLERK: No Patient History Now: No : 4 Para: 4 Nursing Documentation-[facility] Past Medical History: No Stated History Review of Systems All Other Systems: negative except mentioned in HPI Physical Exam Vital Signs Date Time Temp Pulse Resp B/P (MAP) Pulse Ox O2 Delivery O2 Flow Rate FiO2 01/26/20 22:25 98.8 81 21 125/72 (89) 94 Room Air Sp02 EP Interpretation: reviewed, normal General Appearance: no apparent distress, alert, GCS 15, non-toxic Head: normocephalic, atraumatic Eyes: bilateral eye normal inspection, bilateral eye PERRL ENT: hearing grossly normal, normal pharynx, no angioedema, normal voice Neck: full range of motion, supple/symm/no masses Respiratory: chest non-tender, lungs clear, normal breath sounds, speaking full sentences Cardiovascular #1: regular rate, rhythm, no edema Cardiovascular #2: 2+ carotid (R), 2+ carotid (L), 2+ radial (R), 2+ radial (L), 2+ dorsalis pedis (R), 2+ dorsalis pedis (L) Gastrointestinal: normal bowel sounds, non tender, soft, non-distended, no guarding, no rebound Rectal: deferred Genitourinary: normal inspection, no CVA tenderness Musculoskeletal: back normal, normal range of motion, gait/station normal, non- tender Neurologic: alert, motor strength/tone normal, oriented x3, sensory intact, responsive, speech normal Psychiatric: judgement/insight normal, memory normal, mood/affect normal, no s uicidal/homicidal ideation Lymphatic: no adenopathy Medical Decision Making Diagnostic Impression: Primary Impression: Upper respiratory infection Additional Impression: Suspected COVID-19 virus infection ER Course 39-year-old otherwise healthy female here with 3 days of generalized fatigue, dry cough. Symptoms are nonspecific and without red flag findings in history or physical exam for significant illness. The patient is overall well-appearing with a normal lung exam, nonlabored breathing and normal pulse oximetry. At this time I do not believe that the patient requires emergent labs or imaging. Symptoms are most consistent with a viral syndrome which in the setting of the global pandemic of novel COVID-19 the patient is suspected to have the infection. Little clinical suspicion for pneumonia at this time or other process that would require antibiotics. [facility] is currently unable to provide COVID-19 testing on otherwise healthy appearing patients. The patient is given close return precautions and follow-up instructions. I educated the patient that at this time [facility] and is unable to support COVID-19 screening and people that are otherwise healthy and well-appearing without evidence of decompensation. I did educate the patient that he could have any number of viral infections to include influenza, rhinovirus or COVID-19. The patient was educated that they should self-quarantine for 14 days as a precaution and not come into contact with anyone that is elderly or has multiple chronic medical conditions. The patient was also educated of the signs and symptoms that indicate worsening of a respiratory virus and would require return to the emergency department which includes worsening symptoms and difficulty breathing. The patient is given close return precautions and follow-up instructions. Last Vital Signs Date Time Temp Pulse Resp B/P (MAP) Pulse Ox O2 Delivery O2 Flow Rate FiO2 01/26/20 22:25 98.8 81 21 125/72 (89) 94 Room Air Disposition: HOME, SELF-CARE Condition: Stable Scripts Ondansetron Odt* (ZOFRAN ODT*) 8 Mg Tab.rapdis 8 MG ORAL Q6H PRN for Nausea & Vomiting, #12 TAB Prov: Semaj Gutierres M.D. 01/26/20 Acetaminophen* (ACETAMINOPHEN EXTRA STRENGTH*) 500 Mg Tablet 500 MG ORAL Q6H for 7 Days, TAB Prov: Semaj Gutierres M.D. 01/26/20 Benzonatate* (TESSALON PERLE*) 100 Mg Capsule 100 MG ORAL THREE TIMES A DAY for 5 Days, COLIN Prov: Semaj Gutierres M.D. 01/26/20 [facility] Patient Instructions: Upper Respiratory Infection, Adult Additional Instructions: You likely have COVID-19. Please get tested for COVID-19 at an outpatient testing center. Socially distance from other people. Come back to the emergency department if you have worsening symptoms or shortness of breath. Semaj Gutierres M.D. Jan 26, 2020 22:55
[2020-01-26 23:32] VITALS: BP 16/70
--- NOTE | 2020-01-26 23:32 | NUR ---
ER DISCHARGE NOTE: Patient is cleared to be discharged per ERMD, pt is aox4, on room air, with stable vital signs. pt was given dc and prescription instructions, pt was able to verbalize understanding, pt id band and iv site removed without complications. pt is able to ambulate with steady gait. pt took all belongings.
--- NOTE | 2020-01-26 23:45 | Diagnostic Imaging Report ---
EXAM: XR Chest, 1 View CLINICAL HISTORY: COUGH TECHNIQUE: Frontal view of the chest. COMPARISON: No relevant prior studies available. FINDINGS: Lungs: No consolidation or mass. Pleural space: No acute findings Heart: No cardiomegaly. Bones/joints: No acute findings. IMPRESSION: No acute cardiopulmonary process.
== END 2020-01-26 23:32 | disposition home or self-care (01) ==
LOC: EMR 22:41
DX: J06.9 Acute upper respiratory infection, unspecified (principal); Z20.828 Contact with and (suspected) exposure to other viral communicable diseases
CPT/HCPCS: 71045; Z7502; 99283